=== PATIENT | male | born 1945 ===

== ENCOUNTER 2023-06-02 17:02 | Emergency (ER) | payer MEDICARE, OTHER, SELFPAY ==
[2023-06-02] VITALS (8 sets, daily range): BP systolic 135–171; BP diastolic 63–91; BMI 21.9
[2023-06-02] MEDS: TYLENOL 650 MG PO (17:41)
[2023-06-02 17:59] LABS: Urine Albumin 1+ (Neg - Trace); Urine Bilirubin Negative (Negative); Urine Character Clear (Clear); Urine Color Yellow; Urine Glucose Negative (Negative); Urine Ketone Negative (Negative); Urine Leukocyte Negative (Negative); Urine Nitrite Negative (Negative); Urine Occult Blood 4+ (Negative); Urine Urobilinogen Negative (Neg - 1+)
[2023-06-02 18:01] LABS: % Basophils 0.4 % (0-2); % Eosinophils 4.2 % (0-6); % Immature Granulocytes 0.4 % (0-0.5); % Lymphocytes 18.7 % (20.5-51.1); % Monocytes 14.6 % (1.7-9.3); % Neutrophils 61.7 % (42.2-75.2); Absolute Eosinophils 0.3 10^3/uL (0-0.7); Absolute Lymphocytes 1.3 10^3/uL (1.2-3.4); Absolute Neutrophils 4.4 10^3/uL (1.4-6.5); Mean Corp Hgb Conc. 34.5 g/dL (33.0-37.0); Mean Corpuscular Volume 81.2 fL (80.0-94.0); Mean Platelet Volume 9.8 fL (7.4-10.4); Nucleated Red Blood Cells % 0 % (-); Platelet Count 142 10^3/uL (130-400); Red Blood Cell Count 3.57 10^6/uL (4.70-6.10); Red Cell Dist. Width 17.1 % (11.5-14.5); White Blood Cell Count 7.1 10^3/uL (4.8-10.8)
[2023-06-02 18:04] LABS: Urine Squamous Cell 0-2 /LPF (Few)
[2023-06-02 18:05] LABS: Urine Red Blood Cell >100 /HPF (0-2); Urine White Cell None Seen /HPF (0-5)
[2023-06-02 18:08] LABS: Lactic Acid 1.1 mmol/L (0.7-2.0)
[2023-06-02 18:15] LABS: ALT (SGPT) 23 U/L (0-50); AST (SGOT) 47 U/L (17-59); Albumin 4.6 g/dl (3.5-5.0); Alkaline Phosphatase 55 U/L (38-126); Blood Urea Nitrogen 30 mg/dl (9-20); Calcium 9.3 mg/dl (8.4-10.2); Carbon Dioxide 17 mmol/L (22-30); Chloride 106 mmol/L (98-107); Glucose 138 mg/dl (70-99); Potassium 4.4 mmol/L (3.5-5.1); Sodium 132 mmol/L (135-145); Total Bilirubin 0.8 mg/dl (0.2-1.3); Total Protein 7.9 g/dl (6.3-8.2); eGFR > 60.00
[2023-06-02 19:25] LABS: COVID-19 Antigen Positive (Negative)
--- NOTE | 2023-06-02 20:09 | ED.GENMED ---
History of Present Illness
General
Chief Complaint: Fever
Source: patient
Exam Limitations: none
Time Seen by Provider: 06/02/23 19:34
Nursing documentation reviewed up to this point in time: agreed with
Travel History
Have you had any contact with someone who has COVID-19?: No
Do you have any symptoms of coronavirus? Fever > 100 degrees, chills, cough, shortness of breath, sore throat, loss of taste or smell, muscle aches, or headache?: No
History of Present Illness
History of Present Illness:
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 Denies coughing. Denies sore throat. Denies nausea or vomiting. Denies
diarrhea. Denies headache. Denies sore throat. Denies sick contact. Denies loss of appetite. Denies recent travel. Patient's vaccinations are up-to-date, including multiple COVID vaccinations and influenza.
Review of Systems
Review of Systems
Allergies reviewed?: Yes
All Other Systems: ROS reviewed and negative except as documented in HPI and ROS
Constitutional: Reports fever
Respiratory: Reports no symptoms; Denies cough
Cardiac: Reports no symptoms
ABD/GI: Reports no symptoms
Musculoskeletal: Reports other (thigh pain)
Skin: Reports itching and rash
Neurological: Reports no symptoms
Phy Exam
Physical Exam
Physical Exam:
Physical Exam
General: no apparent distress, not acutely ill. febrile
Head: nc/at. eomi
Neck: supple. normal range of motion.
Heart: s1/s2 regular rate and rhythm, no murmur. equal radial pulses.
Lungs: no acute respiratory distress. clear bilaterally
Abdomen: normal bowel sounds. not tender.
Neuro: alert and oriented. no focal neurological deficits
Skin: no rash
Psychiatric: well kept. interactive and cooperative
Extremities: mild left lateral thigh tenderness to palpation, exacerbated with leg flexion. no swelling/erythema/ecchymosis.
Course
Orders/Labs/Results
Orders:
Orders
06/02/23 17:38
Acetaminophen [Tylenol] 650 mg PO NOW STA
06/02/23 17:47
Complete Blood Count/With Diff Urgent
Comprehensive Metabolic Panel Urgent
Creatine Phosphokinase Urgent
Comment: ADD ON
Lactic Acid Urgent
06/02/23 17:50
Urine Culture Reflexed from UA [Urinalysis Reflex To Culture] Urgent
Date Specimen was Collected: 06/02/23
Time Specimen was Collected: 17:38
Urine Microscopic Reflex Cult Urgent
06/02/23 18:59
COVID-19 Antigen Urgent
Source: Nasal Swab
Blood Culture Urgent
MIKKI Source: Blood/Venous
Specimen Description:
Date Specimen was Collected: 06/02/23
Time Specimen was Collected: 17:38
Influenza A+B Rapid Molecular Urgent
MIKKI Source: Nasal Swab
Specimen Description:
06/02/23 19:55
Add On- LAB Urgent
Tests Added?: cpk
CR Femur - Left Min 2 Vw Urgent
Comment:
Reason For Exam: pain
06/02/23 20:55
US Legs, Left [US Periph Venous LOWER Ext LT] Urgent
Comment:
Reason For Exam: leg pain
Abnormal Lab Results
06/02/23 06/02/23 06/02/23
17:47 17:50 18:59
RBC 3.57 L 10^6/uL
(4.70-6.10)
Hgb 10.0 L g/dL
(13.0-18.0)
Hct 29.0 L %
(39.0-52.0)
RDW 17.1 H %
(11.5-14.5)
Absolute Monos (auto) 1.0 H 10^3/uL
(0.1-0.6)
Lymphocytes % 18.7 L %
(20.5-51.1)
Monocytes % 14.6 H %
(1.7-9.3)
Sodium 132 L mmol/L
(135-145)
Carbon Dioxide 17 L mmol/L
(22-30)
BUN 30 H mg/dl
(9-20)
Glucose 138 H mg/dl
(70-99)
Creatine Kinase 240 H U/L
(55-170)
Ur Occult Blood Reflex 4+ A
(Negative)
Urine RBC >100 A /HPF
(0-2)
Urine Albumin (Reflex) 1+ A
(Neg - Trace)
SARS-CoV-2 Antigen Positive A
(Negative)
06/02/23 17:47
06/02/23 17:47
Vital Signs
Initial and Last Documented VS:
Initial Vital Signs
Temp Pulse Resp BP Pulse Ox
102.6 F H 95 20 146/78 98
06/02/23 17:32 06/02/23 17:32 06/02/23 17:32 06/02/23 17:32 06/02/23 17:32
Last Documented Vital Signs
Temp Pulse Resp BP Pulse Ox
98.7 F 91 19 171/91 99
06/02/23 18:46 06/02/23 22:50 06/02/23 22:50 06/02/23 22:50 06/02/23 22:50
MDM/Problems Addressed
MDM/Problems Addressed:
COVID-19 test positive. Patient otherwise is hemodynamically stable without any acute distress. No indication for acute treatment, i.e. Paxlovid, at this time.
X-ray and lower extremity ultrasound negative for any acute findings. Nonspecific leg pain, likely secondary to ongoing viral illness versus minor trauma.
Patient will be discharged home in stable condition, to the care of his family, with recommendation to follow-up with PCP with any further concerns.
*Critical Care Note
Total Time (30-74mins, 75-104mins- exclusive of procedures): Not Applicable
ED Attending Note
-
Portions of this chart may have been created with voice recognition software.� Occasional wrong word or��sound alike� substitutions may have occurred due to the inherent limitations of voice recognition software.
Discharge Plan
Departure
Patient Disposition: Home (Routine Discharge)
Date of Disposition: 06/02/23
Time of Disposition: 22:25
Patient with high blood pressure during this ER visit?: Yes
Discharge Problem:
COVID-19, Leg pain
Instructions: COVID-19 (DC)
Referrals:
UNKNOWN - PT DOES,NOT KNOW [Family Provider] -
Activity Restrictions/Additional Instructions:
As discussed, follow-up with your primary care physician as well as system support technician for continual evaluation and treatment.
Interventions
Interventions:
*Risk Screen - Suicide Last Done: 06/02/23 17:32
*General Assessment Last Done: 06/02/23 17:32
*Neglect/Abuse Screening Last Done: 06/02/23 19:21
ED- Fall Risk Assessment Last Done: 06/02/23 19:22
*ED COVID-19 Vaccine History Last Done: 06/02/23 19:21
*Nursing Disposition Last Done: 06/02/23 22:50
ED- Neurological Assessment Last Done: 06/02/23 19:22
ED-Skin Assessment Last Done: 06/02/23 19:32
Discharge Date and Time
Discharge Date/Time: 06/02/23 22:52
[2023-06-02 20:56] LABS: Creatine Phosphokinase 240 U/L (55-170)
== END 2023-06-02 22:52 | disposition home or self-care (01) ==
LOC: EMR 17:02
PROVIDERS: Emergency Medicine; EMERGENCY PHYSICIAN Emergency Medicine
DX: U07.1 COVID-19 (principal); M79.605 Pain in left leg; R03.0 Elevated blood-pressure reading, without diagnosis of hypertension
CPT/HCPCS: 99285; 73552; 80053; 81003; 81015; 82550; 83605; 85025; 87040; 87502; 87811; 93971

== ENCOUNTER 2023-06-18 02:15 | Inpatient (IN) | payer MEDICARE, OTHER, SELFPAY ==
[2023-06-17 19:43] VITALS: BP 148/80
[2023-06-17 22:36] VITALS: BP 142/65
[2023-06-17 22:50] VITALS: BMI 20.1
[2023-06-17 23:00] VITALS: BP 149/62
[2023-06-18] VITALS (9 sets, daily range): BP systolic 114–149; BP diastolic 61–78; PULSE 71–76; O2SAT 97
--- NOTE | 2023-06-18 00:17 | ED.GENMED ---
History of Present Illness
General
Chief Complaint: Breathing Problem
Source: patient and family (Son)
Exam Limitations: none
Time Seen by Provider: 06/17/23 23:09
Nursing documentation reviewed up to this point in time: agreed with
Travel History
Have you had any contact with someone who has COVID-19?: No
Do you have any symptoms of coronavirus? Fever > 100 degrees, chills, cough, shortness of breath, sore throat, loss of taste or smell, muscle aches, or headache?: No
History of Present Illness
History of Present Illness:
78-year-old male with a past medical history of hypertension, hyperlipidemia, diabetes who presents to the emergency room for evaluation of increasing fatigue/lethargy and hypoxia. 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 Patient
says he has been feeling unwell for the past 2 to 3 weeks. 2 weeks ago was diagnosed with COVID and was having cough and fatigue with this. Cough has persisted over that period of time and fatigue he feels is worsening. Today was very lethargic
and on checking vital signs at home he was noted to be hypoxic in the 80s. Has had subjective fever/chills today. Brought to the emergency room for assessment. Cough is persistent he says nonproductive. He denies shortness of breath at present
but was apparently winded at home. Denies any chest pain. Has not had any GI symptoms. No swelling or pain in the legs. Denies any urinary symptoms. Denies other complaints. Of note patient has been on a steroid taper recently due to recent
diagnosis of bullous pemphigoid.
Review of Systems
Review of Systems
All Other Systems: ROS reviewed and negative except as documented in HPI and ROS
Constitutional: Reports fever, fatigue and chills
EENT: Denies sore throat or runny nose
Respiratory: Reports cough and trouble breathing
Cardiac: Denies chest pain or palpitations
ABD/GI: Denies abdominal pain, nausea, vomiting or diarrhea
: Denies dysuria, frequency or flank pain
Musculoskeletal: Denies edema, neck pain or back pain
Neurological: Denies headache, weakness or numbness
Phy Exam
Physical Exam
Physical Exam:
General: Awake, alert, oriented x3; no acute distress
Head: Normocephalic, atraumatic
Eyes: Conjunctiva normal
Throat: Airway intact, handling secretions
Neck: Trachea midline, supple without meningismus
Lungs: Patient is hypoxic to the high 80s requiring 2 L nasal cannula; very mild tachypnea with respiratory rate of 22 on my assessment; no increased work of breathing; he has faint rales right midlung
Heart: Regular rate and rhythm, no murmurs, gallops, or rubs
Abd: Soft, non distended, nontender
Neuro: Cranial nerves grossly intact, speech fluid
Extremities: No edema in extremities, warm and well-perfused
Scores
Heart Failure Risk
Heart Failure Risk Score: Not Applicable
Heart Score for Chest Pain Patients
STEMI patient?: Not applicable
Withdrawal Assessment of Alcohol
Withdrawal Assessment Completed?: Not applicable
Course
Orders/Labs/Results
Orders:
Orders
06/17/23 20:31
Complete Blood Count/With Diff Urgent
Comprehensive Metabolic Panel Urgent
Blood Culture Urgent
MIKKI Source: Blood/Venous
Specimen Description:
CR Chest - 2 Views Urgent
Comment:
Reason For Exam: sob
06/17/23 23:40
Lactate Level [Lactic Acid] Urgent
Urinalysis Reflex To Culture Urgent
Date Specimen was Collected: 06/18/23
Time Specimen was Collected: 00:09
Influenza A+B Rapid Molecular Urgent
MIKKI Source: Nasal Swab
Specimen Description:
06/17/23 23:41
Acetaminophen [Tylenol] 650 mg PO NOW STA
Piperacillin/Tazo 3.375 Gram [Zosyn] 3.375 gram in 50 ml IV NOW
06/17/23 23:45
Blood Culture Q30M
MIKKI Source: Blood/Venous
Specimen Description:
06/18/23 00:15
Blood Culture Q30M
MIKKI Source: Blood/Venous
Specimen Description:
06/18/23 01:00
Flush (0.9% Sodium Chloride) [Flush (Nss)] See Dose Instructions IV PER PROTOCOL
Vancomycin [Vancocin] 1,500 mg 0.9% Sodium Chloride [Nss] 20 ml 0.9% Sodium Chloride 250 ml [Nss] 250 ml IV ONCE
Abnormal Lab Results
06/18/23
00:14
RBC 3.58 L 10^6/uL
(4.70-6.10)
Hgb 10.0 L g/dL
(13.0-18.0)
Hct 29.0 L %
(39.0-52.0)
RDW 15.3 H %
(11.5-14.5)
Abs Immat Gran (auto) 0.2 H 10^3/uL
(0-0.05)
Absolute Neuts (auto) 8.5 H 10^3/uL
(1.4-6.5)
Absolute Lymphs (auto) 0.6 L 10^3/uL
(1.2-3.4)
Absolute Monos (auto) 0.7 H 10^3/uL
(0.1-0.6)
Immature Gran % 1.5 H %
(0-0.5)
Neutrophils % 85.4 H %
(42.2-75.2)
Lymphocytes % 5.5 L %
(20.5-51.1)
Sodium 129 L mmol/L
(135-145)
Carbon Dioxide 21 L mmol/L
(22-30)
BUN 44 H mg/dl
(9-20)
Glucose 192 H mg/dl
(70-99)
Albumin 3.3 L g/dl
(3.5-5.0)
06/18/23 00:14
06/18/23 00:14
Vital Signs
Initial and Last Documented VS:
Initial Vital Signs
Temp Pulse Resp BP Pulse Ox
38.1 C H 87 16 148/80 91
06/17/23 19:43 06/17/23 19:43 06/17/23 19:43 06/17/23 19:43 06/17/23 19:43
Last Documented Vital Signs
Temp Pulse Resp BP Pulse Ox
38.1 C H 93 19 149/62 98
06/17/23 19:43 06/17/23 23:00 06/17/23 23:00 06/17/23 23:00 06/18/23 00:30
MDM/Problems Addressed
Differential Diagnosis Includes:
Pneumonia, bronchitis, PE, CHF
MDM/Problems Addressed:
78-year-old male presents for evaluation of increasing lethargy, persistent cough, and fever; had COVID 2 weeks ago. He arrives to us hypoxic and febrile with mild tachypnea. Exam as above. Plan to place an IV check labs including a CBC and a
CMP. Check urinalysis. Send lactate and blood cultures check a chest x-ray. Tylenol for fever. Monitor closely reassess after the above.
Chest x-ray reviewed by me shows bilateral opacities right much greater than left concerning for pneumonia given clinical picture. Awaiting results of labs. Will cover with antibiotics. Anticipate admission pending labs given his hypoxia.
Labs reviewed: CBC shows stable anemia to 10, 85% neutrophils. CMP shows mild hyponatremia 129, mild hyperglycemia 192. Acceptable creatinine. Lactate less than 2. Plan to admit for continued management of pneumonia and acute hypoxic respiratory
failure. Discussed with hospitalist for admission.
*Radiology
Radiology exam reviewed: preliminary read by ED provider
*Pulse Oximetry
Patient hypoxic: yes
*Critical Care Note
Total Time (30-74mins, 75-104mins- exclusive of procedures): Not Applicable
Data Reviewed
Source: patient and family (Son)
Patient Management
Discussion with other providers: Hospitalist (Discussed with hospitalist)
Escalation/DeEscalation of care consider admission/obs:
Admission indicated
ED Attending Note
-
Portions of this chart may have been created with voice recognition software.� Occasional wrong word or��sound alike� substitutions may have occurred due to the inherent limitations of voice recognition software.
Discharge Plan
Departure
Patient Disposition: Admit
Date of Disposition: 06/18/23
Time of Disposition: 01:03
Admit to doctor: Natty
Presentation/result/management discussed w/ accepting MD/DO: Hospitalist
Discharge Problem:
Pneumonia, Acute hypoxic respiratory failure
Referrals:
UNKNOWN - PT DOES,NOT KNOW [Family Provider] -
Interventions
Interventions:
*Risk Screen - Suicide Last Done: 06/17/23 22:52
*General Assessment Last Done: 06/17/23 22:52
*Neglect/Abuse Screening Last Done: 06/17/23 22:52
ED- Fall Risk Assessment Last Done: 06/17/23 22:52
*ED COVID-19 Vaccine History Last Done: 06/17/23 22:52
ED- Cardiac Assessment Last Done: 06/17/23 22:52
ED- Pulmonary Assessment Last Done: 06/17/23 22:52
Discharge Date and Time
Print Language: TAMAZIGHT
[2023-06-18] MEDS: TYLENOL 650 MG PO (00:28)
[2023-06-18] MEDS: ZOSYN 50 IV (00:28)
[2023-06-18 00:47] LABS: Lactic Acid 1.1 mmol/L (0.7-2.0)
[2023-06-18 00:49] LABS: ALT (SGPT) 25 U/L (0-50); AST (SGOT) 34 U/L (17-59); Albumin 3.3 g/dl (3.5-5.0); Alkaline Phosphatase 64 U/L (38-126); Blood Urea Nitrogen 44 mg/dl (9-20); Calcium 9.5 mg/dl (8.4-10.2); Carbon Dioxide 21 mmol/L (22-30); Chloride 99 mmol/L (98-107); Estimated Creatinine Clearance 74 ml/min; Glucose 192 mg/dl (70-99); Potassium 5.1 mmol/L (3.5-5.1); Sodium 129 mmol/L (135-145); Total Bilirubin 0.7 mg/dl (0.2-1.3); Total Protein 6.5 g/dl (6.3-8.2); eGFR > 60.00
[2023-06-18 00:52] LABS: % Basophils 0.1 % (0-2); % Eosinophils 0.6 % (0-6); % Immature Granulocytes 1.5 % (0-0.5); % Lymphocytes 5.5 % (20.5-51.1); % Monocytes 6.9 % (1.7-9.3); % Neutrophils 85.4 % (42.2-75.2); Absolute Eosinophils 0.1 10^3/uL (0-0.7); Absolute Immature Granulocytes 0.2 10^3/uL (0-0.05); Absolute Lymphocytes 0.6 10^3/uL (1.2-3.4); Absolute Monocytes 0.7 10^3/uL (0.1-0.6); Absolute Neutrophils 8.5 10^3/uL (1.4-6.5); Mean Corp Hgb Conc. 34.5 g/dL (33.0-37.0); Mean Corpuscular Hgb 27.9 pg (27.0-31.0); Mean Platelet Volume 9.5 fL (7.4-10.4); Nucleated Red Blood Cells % 0.2 % (-); Platelet Count 201 10^3/uL (130-400); Red Blood Cell Count 3.58 10^6/uL (4.70-6.10); Red Cell Dist. Width 15.3 % (11.5-14.5); White Blood Cell Count 9.9 10^3/uL (4.8-10.8)
[2023-06-18] MEDS: FLUSH (NSS) 1 FLUSH IV (01:02)
[2023-06-18] MEDS: VANCOCIN 300 ML IV (01:09)
[2023-06-18] MEDS: VANCOCIN 300 MG IV (01:09)
[2023-06-18 01:26] LABS: Urine Albumin Trace (Neg - Trace); Urine Bilirubin Negative (Negative); Urine Character Clear (Clear); Urine Color Yellow; Urine Glucose Negative (Negative); Urine Ketone Negative (Negative); Urine Leukocyte Negative (Negative); Urine Nitrite Negative (Negative); Urine Occult Blood 4+ (Negative); Urine Specific Gravity 1.015 (<1.030); Urine Urobilinogen Negative (Neg - 1+)
--- NOTE | 2023-06-18 01:34 | HPS.HSE ---
Family Physician
-
Family Physician: NOT KNOW UNKNOWN - PT DOES
Chief Complaint
-
cough, fatigue , feverish
History of Present Illness
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 Assciated with intracable non productive cough
Today he felt drowzty and noted POx in 80s on RA at home and came to ER for evalaution
@ ER
T 102, Tachynic, POx was initally in 80s and become hi 90s on 2 L
Lab : hi WCC, LA 1.1
CXR concerning for B/l Basilar PNA R > L
ROS:
Denies any chest pain.
Denies any urinary symptoms.
Medical History
Past Medical History
Past Medical History: Reports HTN, Hypercholesterolemia and NIDDM
Additional Past Medical History:
On a steroid taper recently due to recent diagnosis of bullous pemphigoid.
Past Surgical History: Reports Other (NA)
Social History
Tobacco: Non-smoker
Alcohol: None
Drug: None
Family History
Family History: Not pertinent
Allergies / Home Medications
Allergies reflects when Allergies were last updated in [facility].
Home Medications with original date entered in [facility]
Allergy/Medication List:
Allergies
Allergy/AdvReac Type Severity Reaction Status Date / Time
Iodinated Contrast Media Allergy Unknown Verified 06/02/23 17:32
If medication reconciliation has not been performed, why?: Medication List N/A
Review of Systems
-
History Source: Physician
Constitutional: Reports No Symptoms
EENT: Reports No Symptoms
Respiratory: Reports Cough
Cardiac: Reports No Symptoms
Abdomen/GI: Reports No Symptoms
: Reports No Symptoms
Musculoskeletal: Reports No Symptoms
Skin: Reports No Symptoms
Neurological: Reports Weakness
Endocrine: Reports No Symptoms
Hematologic/Lymphatic: Reports No Symptoms
Psych: Reports No Symptoms
Physical Exam
Vital Signs
Vital Signs
Temp Pulse Resp BP Pulse Ox
100.5 F H 93 19 149/62 98
06/17/23 19:43 06/17/23 23:00 06/17/23 23:00 06/17/23 23:00 06/18/23 00:30
Physical Exam
General: No Apparent Distress and Conversant
HEENT: NormoCephalic and Anicteric
Respiratory: Rales (at Rt lower lung ) and Other (mildly tachypnic,)
Cardiac: S1/S2 and Regular Rhythm; No Tachycardia
Breast: Deferred by me
GI: Soft, Non Tender, Non Distended and Normal Bowel Sounds
Rectal: Deferred by Provider
Genito-urinary: Deferred by me
Musculoskeletal: No Edema
Skin: Warm and Dry
Neuro: Alert and AO x 3
Psych: Calm
Laboratory Results
-
06/18/23 00:14
06/18/23 00:14
Laboratory Results
Lactic Acid 1.1 mmol/L (0.7-2.0) 06/18/23 00:14
Total Bilirubin 0.7 mg/dl (0.2-1.3) 06/18/23 00:14
AST 34 U/L (17-59) 06/18/23 00:14
ALT 25 U/L (0-50) 06/18/23 00:14
Alkaline Phosphatase 64 U/L (38-126) 06/18/23 00:14
Data Reviewed
-
Diagnostic Radiology: Image Personally Visualized and interpreted
Lab Data: Labs Reviewed by me
Impression/Plan
-
Reviewed VS: T max 102.6 HR 90 BP 150/60 RR 19 -22 POx 98 on 2L NC O2
Data
WCC 9.9
Hgb 10 - 10 on 06/02/23
Na 129 - was 132 on
BUN 44
nl Cr nl eGFR
BG 190
nl LFts
LA 1.1
Pending UA
UCx sent
BCx sent
CXR
Bilateral opacities right> left
No prior hospitalist admission:
ASSESSMENT & PLAN
Pending Rx reconciliation
Post covid PNA concerning for secondary bacterial infection
Associated Hypoxic RI need on 2L NC O2
Associated sepsis ( T > 100.9, RR 20)
Post Covid Fatigue and lethargy +/_ infective transient encephalopathy
- Vanco and Zosyn @ ER
- Empiric ABx - will swish to IV CFTZ and PO Doxy
- O2 support ot keep POx > 94%
- Supportive Care: Gentle IVF
Hyponatremia
- Gentle IVF NS @ 40 /H x 500cc
- f/u Na in AM
Hyperglycemia due to steroids and PNA
DM
- add ISS low for now
Essential HTN : sub optimal control
- add IV Hydralazine PRN
Recent diagnosis of bullous pemphigoid: clearing on steroids
- cont Steroids
DVT Px: LMWH
Code: Full
Ip TLM
[2023-06-18 01:45] LABS: Urine Bacteria Moderate (Negative); Urine Red Blood Cell 50-60 /HPF (0-2)
[2023-06-18] MEDS: NSS 500 IV (04:16)
[2023-06-18 08:15] LABS: Hematocrit 29.6 % (39.0-52.0); Mean Corp Hgb Conc. 33.8 g/dL (33.0-37.0); Mean Corpuscular Hgb 27.6 pg (27.0-31.0); Mean Corpuscular Volume 81.8 fL (80.0-94.0); Mean Platelet Volume 9.3 fL (7.4-10.4); Platelet Count 170 10^3/uL (130-400); Red Blood Cell Count 3.62 10^6/uL (4.70-6.10); Red Cell Dist. Width 15.3 % (11.5-14.5); White Blood Cell Count 8.2 10^3/uL (4.8-10.8)
--- NOTE | 2023-06-18 08:39 | W.PN.HOSP.TC ---
Today's Communication/Plan
-
Wean oxygen as tolerated
Will give 1 dose of Lasix
Follow sodium in the morning
Ambulate
Assessment / Plan
Assessment / Plan
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 He was diagnosed with COVID 2 weeks ago. Cough has persisted became very lethargic and was hypoxic at home to the 80s. He also had some subjective fevers and
chills. He is on steroids for bullous pemphigoid .
# Acute hypoxic respiratory insufficiency
Possible secondary bacterial pneumonia
Continue doxycycline and ceftriaxone
Nebs as needed
Mucinex
Wean oxygen as tolerated
# Hyponatremia
Check serum and urine osmolality, urine sodium
TSH normal.
Stop IVF as it could have worsened hyponatremia
Per discussion with patient's son this is chronic and he usually runs from 127- 132
We will give him a dose of Lasix now.
Follow sodium in the morning
# Recent COVID-19 infection
# Bullous pemphigoid-Mo started on steroid taper by outpatient clinical dermatologist. He is down to 10 mg dosage now till next
Patient is supposed to see dermatology tomorrow
Had 2 small biopsy site sutures which I took out today from the back
# Anemia-check iron studies and B12
Per discussion with son patient had extensive workup including EGD colonoscopy, bone marrow biopsy and hematology evaluation as outpatient.
# Microscopic hematuria-needs urology follow-up as outpatient.
Patient's son is aware about this and states that he will take him to Dr. Mccallum who he has seen in the past
We discussed about imaging son wants to hold off until he sees Dr. Mccallum.
# Hypertension-on amlodipine 5 mg twice daily, ramipril 10 twice daily and atenolol 50 mg daily as outpatient
# Diabetes
On pioglitazone and nateglinide as outpatient
Continue equivalent
Accu-Cheks and sliding scale coverage
Hemoglobin A1c 7.1
# Hyperlipidemia-continue simvastatin
# DVT prophylaxis-Lovenox
# Full code
Spoke to to Son at bed side
D/W another son who is a pulm Crit Doc in [place] Dr.Amit Crandall.
He agrees with the plan of care and treatment. Requested if we can discharge the patient tomorrow with antibiotics so they can make the appointment with the clinical dermatologist to start Dupixent for his bullous pemphigoid.
Anticipated Discharge: Within 24 hours
Subjective/Interval History
-
Date of Service: June 18, 2023
Objective Data
-
Labs:
Laboratory Results
06/18/23 06/18/23
00:14 07:48
WBC 9.9 8.2
Hgb 10.0 L 10.0 L
Hct 29.0 L 29.6 L
Plt Count 201 170
Sodium 129 L Pending
Potassium 5.1 Pending
Chloride 99 Pending
Carbon Dioxide 21 L Pending
BUN 44 H Pending
Creatinine 0.8 Pending
Glucose 192 H Pending
Calcium 9.5 Pending
Total Bilirubin 0.7 Pending
AST 34 Pending
ALT 25 Pending
Alkaline Phosphatase 64 Pending
Vital Signs:
Vital Signs
Temp Pulse Resp BP Pulse Ox
97.5 F 65 17 149/78 97
06/18/23 07:59 06/18/23 07:59 06/18/23 07:59 06/18/23 07:59 06/18/23 07:59
I&O
06/17/23 06/18/23 06/19/23
06:59 06:59 06:59
Intake Total 120 / 120
Balance 120 / 120
[2023-06-18 08:47] LABS: ALT (SGPT) 24 U/L (0-50); AST (SGOT) 30 U/L (17-59); Albumin 3.2 g/dl (3.5-5.0); Alkaline Phosphatase 67 U/L (38-126); Blood Urea Nitrogen 38 mg/dl (9-20); Carbon Dioxide 20 mmol/L (22-30); Chloride 103 mmol/L (98-107); Estimated Creatinine Clearance 66 ml/min; Glucose 173 mg/dl (70-99); Potassium 4.9 mmol/L (3.5-5.1); Sodium 127 mmol/L (135-145); Total Bilirubin 0.8 mg/dl (0.2-1.3); Total Protein 6.3 g/dl (6.3-8.2); eGFR > 60.00
[2023-06-18 08:53] LABS: Glucose - Point of Care 184 mg/dl (70-99)
[2023-06-18] MEDS: ROCEPHIN 1000 MG IV (09:26)
[2023-06-18] MEDS: STERILE WATER FOR INJECTION 10 ML IV (09:27)
[2023-06-18] MEDS: VIBRAMYCIN 100 MG PO ×2 (09:27→20:09)
[2023-06-18] MEDS: FLUSH (NSS) 2 FLUSH IV (09:28)
[2023-06-18 09:29] LABS: Osmolality Serum 287 mOsm/kg (275-300)
[2023-06-18] MEDS: NOVOLOG FLEXPEN-LOW RESISTANCE 1 UNITS SC (09:39)
[2023-06-18 10:00] LABS: TSH 2.11 uIU/ml (0.47-4.68)
[2023-06-18] MEDS: ACTOS 30 MG PO (10:56)
[2023-06-18] MEDS: TENORMIN 50 MG PO (10:56)
[2023-06-18] MEDS: LIPITOR 10 MG PO (10:56)
[2023-06-18] MEDS: ALTACE 10 MG PO ×2 (10:56→20:09)
[2023-06-18] MEDS: VITAMIN D3 (cholecalciferol) 25 MCG PO (10:57)
--- NOTE | 2023-06-18 10:57 | CM ---
Initial assessment completed with patient and son. Patient lives with his in a 2 story home plus basement. First floor is set up for living with B/B on . No stairs to enter home. 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 Has a RW and SC in the home but does not use. No in-home services. No psychiatric hospitalizations. Pharmacy is [facility] [address] in [place] and PCP is Dr. Iker Velazquez with [facility]. ANTICIPATE NO NEEDS AT DISCHARGE.
[2023-06-18 11:40] LABS: Glycohemoglobin (HgbA1c) 7.1 % (4.0-5.6)
[2023-06-18] MEDS: DELTASONE 10 MG PO (12:00)
[2023-06-18] MEDS: MUCINEX 600 MG PO ×2 (13:49→20:09)
[2023-06-18] MEDS: LASIX 20 MG PO (13:49)
[2023-06-18 14:40] LABS: Glucose - Point of Care 136 mg/dl (70-99)
[2023-06-18] MEDS: NOVOLOG FLEXPEN-LOW RESISTANCE SC (14:50)
[2023-06-18 14:51] LABS: Osmolality Urine 534 mOsm/kg (300-900)
[2023-06-18 14:58] LABS: Urine Sodium 100 mmol/L (30-90)
[2023-06-18 15:10] LABS: Iron 46 ug/dl (49-181)
[2023-06-18 15:19] LABS: Percent Saturation 22 % (20-50); Total Iron Binding Capacity 208 ug/dl (261-462)
[2023-06-18 16:19] LABS: Vitamin B12 920 pg/ml (239-931)
[2023-06-18] MEDS: NON-FORMULARY ITEM 120 MG PO (17:21)
[2023-06-18] MEDS: LOVENOX 40 MG SC (17:21)
[2023-06-18] MEDS: NON-FORMULARY ITEM 1 UNIT PO (17:22)
[2023-06-18 18:32] LABS: Glucose - Point of Care 202 mg/dl (70-99)
[2023-06-18] MEDS: NOVOLOG FLEXPEN-LOW RESISTANCE 2 UNITS SC (18:33)
[2023-06-18 18:36] LABS: Osmolality Urine 429 mOsm/kg (300-900)
[2023-06-18 18:51] LABS: Urine Sodium 127 mmol/L (30-90)
[2023-06-18 21:21] LABS: Glucose - Point of Care 260 mg/dl (70-99)
[2023-06-19 03:18] VITALS: BP 134/74
[2023-06-19 05:40] LABS: Blood Urea Nitrogen 38 mg/dl (9-20); Calcium 9.3 mg/dl (8.4-10.2); Carbon Dioxide 23 mmol/L (22-30); Chloride 96 mmol/L (98-107); Estimated Creatinine Clearance 66 ml/min; Glucose 101 mg/dl (70-99); Potassium 4.3 mmol/L (3.5-5.1); Sodium 128 mmol/L (135-145); eGFR > 60.00
[2023-06-19 07:25] VITALS: BP 132/71
[2023-06-19 08:34] LABS: Glucose - Point of Care 109 mg/dl (70-99)
[2023-06-19] MEDS: NOVOLOG FLEXPEN-LOW RESISTANCE SC ×2 (09:24→11:59)
[2023-06-19] MEDS: DELTASONE 10 MG PO (09:25)
[2023-06-19] MEDS: ACTOS 30 MG PO (09:25)
[2023-06-19] MEDS: LIPITOR 10 MG PO (09:25)
[2023-06-19] MEDS: MUCINEX 600 MG PO (09:25)
[2023-06-19] MEDS: VIBRAMYCIN 100 MG PO (09:25)
[2023-06-19] MEDS: VITAMIN D3 (cholecalciferol) 25 MCG PO (09:25)
[2023-06-19] MEDS: TENORMIN 50 MG PO (09:26)
[2023-06-19] MEDS: ROCEPHIN 1000 MG IV (09:26)
[2023-06-19] MEDS: ALTACE 10 MG PO (09:26)
[2023-06-19] MEDS: STERILE WATER FOR INJECTION 10 ML IV (09:26)
[2023-06-19] MEDS: NON-FORMULARY ITEM 120 MG PO ×2 (09:27→12:24)
[2023-06-19] MEDS: NON-FORMULARY ITEM 1 UNIT PO (09:27)
[2023-06-19 11:07] VITALS: BP 126/58
--- NOTE | 2023-06-19 11:19 | W.PN.HOSP.TC ---
Today's Communication/Plan
-
Check home oxygen assessment
Discharge today
Assessment / Plan
Assessment / Plan
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 He was diagnosed with COVID 2 weeks ago. Cough has persisted became very lethargic and was hypoxic at home to the 80s. He also had some subjective fevers and
chills. He is on steroids for bullous pemphigoid .
Awake alert oriented. Denies any discomfort
Feels good
No shortness of breath with ambulation to bathroom
Cardiovascular system S1-S2 appreciated
Chest a few rales scattered bilaterally
Abdomen soft and nontender
No pedal edema
# Acute hypoxic respiratory insufficiency
Possible secondary bacterial pneumonia
Continue doxycycline and change ceftriaxone to Ceftin
Off oxygen
# Hyponatremia
Studies consistent with SIADH
TSH normal.
Per discussion with patient's son this is chronic and he usually runs from 127- 132
Slightly better with dose of Lasix
Fluid restriction discussed with patient and son
Repeat BMP in 1 week
# Recent COVID-19 infection
# Bullous pemphigoid-Mo started on steroid taper by outpatient physician office assistant. He is down to 10 mg dosage now till next
Patient is supposed to see dermatology tomorrow
Had 2 small biopsy site sutures which I took out today from the back
# Anemia-check iron studies and B12
Per discussion with son patient had extensive workup including EGD colonoscopy, bone marrow biopsy and hematology evaluation as outpatient.
# Microscopic hematuria-needs urology follow-up as outpatient.
Patient's son is aware about this and states that he will take him to Dr. Mccallum who he has seen in the past
We discussed about imaging son wants to hold off until he sees Dr. Mccallum.
May also need a cystoscopy as outpatient
# Hypertension-on amlodipine 5 mg twice daily, ramipril 10 twice daily and atenolol 50 mg daily as outpatient
# Diabetes
On pioglitazone and nateglinide as outpatient
Continue equivalent
Accu-Cheks and sliding scale coverage
Hemoglobin A1c 7.1
# Hyperlipidemia-continue simvastatin
# DVT prophylaxis-Lovenox
# Full code
Spoke to to Son at bed side
06/18/23-D/W another son who is a pulm Crit Doc in [place] Dr.Amit Crandall.
He agrees with the plan of care and treatment. Requested if we can discharge the patient tomorrow with antibiotics so they can make the appointment with the physician office assistant to start Dupixent for his bullous pemphigoid.
Discussed with nursing
discharge time 31 min
Anticipated Discharge: Today
Subjective/Interval History
-
Date of Service: June 19, 2023
Objective Data
-
Labs:
Laboratory Results
06/19/23
03:58
Sodium 128 L
Potassium 4.3
Chloride 96 L
Carbon Dioxide 23
BUN 38 H
Creatinine 0.9
Glucose 101 H
Calcium 9.3
Vital Signs:
Vital Signs
Temp Pulse Resp BP Pulse Ox
99.8 F 87 18 132/71 96
06/19/23 07:25 06/19/23 09:26 06/19/23 07:25 06/19/23 09:26 06/19/23 07:25
I&O
06/18/23 06/19/23 06/20/23
06:59 06:59 06:59
Intake Total 120 / 120 460 / 460
Balance 120 / 120 460 / 460
--- NOTE | 2023-06-19 11:25 | W.DS.TRANS ---
Addendum entered and electronically signed by Riya Marroquin MD 06/19/23 15:46:
Dictation- [id number]
Original Note:
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
-
Discharge Instructions:
Discharge Diagnosis/Procedures Acute hypoxic respiratory insufficiency, post
COVID-pneumonia, hyponatremia-SIADH, recent
COVID-19 infection, bullous pemphigoid, anemia,
microscopic hematuria, hypertension, diabetes,
hyperlipidemia
Diet Restrict fluids to 48 oz,Diabetic, Carb
Controlled
Activity As tolerated
Driving Restrictions As prior to admission
Blood Work BMP 1 week
Instructions:
Stand-Alone Forms:
Changes to Home Medications: Yes
Discharge Medications:
DC Medications w/original date entered in [employer]
alendronate 70 mg tablet 70 mg PO QWEEK osteoporosis 06/18/23
amlodipine 5 mg tablet 5 mg PO DAILY Blood Pressure 06/18/23
atenolol 50 mg tablet 50 mg PO DAILY Blood Pressure 06/18/23
cholecalciferol (vitamin D3) 25 mcg (1,000 unit) capsule (Vitamin D3) 25 mcg PO DAILY Supplement 06/18/23
coQ10 (ubiquinol) 100 mg capsule 100 mg PO DAILY Supplement 06/18/23
nateglinide 120 mg tablet 120 mg PO TID @ 0800,1200,1700 diabetes 06/18/23
pioglitazone 30 mg tablet 30 mg PO DAILY diabetes 06/18/23
prednisone 10 mg tablet 10 mg PO DAILY Anti-Inflammatory 06/18/23
ramipril 10 mg capsule 10 mg PO DAILY Blood Pressure 06/18/23
simvastatin 20 mg tablet 20 mg PO DAILY High Cholesterol 06/18/23
vitamin B complex 1 tab PO DAILY Supplement 06/18/23
cefuroxime axetil 500 mg tablet 500 mg PO BID Infection #10 tabs 06/19/23
doxycycline hyclate 100 mg capsule 100 mg PO BID Infection #10 caps 06/19/23
Home Medication Changes
new
cefuroxime axetil 500 mg tablet 500 mg PO BID Infection #10 tabs 06/19/23
doxycycline hyclate 100 mg capsule 100 mg PO BID Infection #10 caps 06/19/23
Pending Results: No
[2023-06-19 11:55] LABS: Glucose - Point of Care 128 mg/dl (70-99)
--- NOTE | 2023-06-19 12:00 | CM ---
Addendum entered by Radha Horn RN 06/19/23 12:25:
Confirmed with the patient and son at the bedside that the patient's son will provide transportation home.
Original Note:
Reviewed the chart notes. The patient is for discharge today to home. The patient's son will provide transportation home. CM continues to be available to patient/family and is monitoring medical plan for needs at discharge.
Plan: Discharge to home with no additional needs being identified at this time.
--- NOTE | 2023-06-19 12:27 | PTCARENOTE ---
Pt home meds returned to pt son Neteglinide and CoQ10
--- NOTE | 2023-06-19 13:48 | PTCARENOTE ---
pt d/c home with son as transport. CD with xray images and supplements from home returned to pt's son. Discussed d/c paperwork. script obtained for blood work. IV pulled, tele removed.
== END 2023-06-19 13:49 | disposition home or self-care (01) | DRG 177 ==
LOC: 2 NORTH 02:15
PROVIDERS: Emergency Medicine; ADMITTING PHYSICIAN Internal Medicine; ATTENDING PHYSICIAN Hospitalist; EMERGENCY PHYSICIAN Emergency Medicine
PROC: 5A09357 Assistance with Respiratory Ventilation, Less than 24 Consecutive Hours, Continuous Positive Airway Pressure (ICD-10-PCS; 2023-06-18)
DX: U07.1 COVID-19 (principal); J12.82 Pneumonia due to coronavirus disease 2019; E22.2 Syndrome of inappropriate secretion of antidiuretic hormone; L12.0 Bullous pemphigoid; E11.65 Type 2 diabetes mellitus with hyperglycemia; I10 Essential (primary) hypertension; E78.00 Pure hypercholesterolemia, unspecified; T38.0X5A Adverse effect of glucocorticoids and synthetic analogues, initial encounter; R31.29 Other microscopic hematuria; D64.9 Anemia, unspecified; R09.02 Hypoxemia; R06.89 Other abnormalities of breathing; Z91.041 Radiographic dye allergy status
CPT/HCPCS: 71046; 80048; 80053; 81003; 81015; 82607; 82728; 82962; 83036; 83540; 83550; 83605; 83930; 83935; 84300; 84443; 85025; 85027; 87040; 87086; 87502; 94660; 96365; 96366; 96367; 97162; 99285